=== PATIENT | female | born 1985 ===

== ENCOUNTER 2017-05-24 17:46 | Emergency (ER) | payer SELFPAY ==
[2017-05-24 17:50] VITALS: TEMP 98.2; O2SAT 98
[2017-05-24] MEDS ORDERED: Bacitracin 500 Units/gm Oint Foilpak UD TOP ONE (18:49)
[2017-05-24] MEDS ORDERED: Lidocaine 2% Inj (20ml) INFIL ONE (18:49)
[2017-05-24] MEDS ORDERED: Lidocaine 2% Inj (20ml) ONE (18:59)
[2017-05-24] MEDS ORDERED: Bacitracin 500 Units/gm Oint Foilpak UD ONE (18:59)
--- NOTE | 2017-05-24 19:47 | C.PDOC ---
History Of Present Illness 31 y/o female presents to ED for evaluation on cut to right thumb. Patient states she was cleaning salicylic acid blender and the blade cut right thumb. Patient denies change in sensation or any other complaints at this time. Patient is right hand dominant Time Seen by Provider: 05/24/17 18:22 Chief Complaint (Nursing): Abnormal Skin Integrity History Per: Patient History/Exam Limitations: no limitations Onset/Duration Of Symptoms: Hrs Current Symptoms Are (Timing): Still Present Location Of Injury: Right: Hand Past Medical History Reviewed: Historical Data, Nursing Documentation, Vital Signs Vital Signs: Last Vital Signs Temp 98.2 F 05/24/17 17:49 Pulse 70 05/24/17 20:07 Resp 16 05/24/17 20:07 BP 122/78 05/24/17 20:07 Pulse Ox 98 05/24/17 20:08 - Medical History PMH: No Chronic Diseases Surgical History: Appendectomy (2003) Family History: States: No Known Family Hx - Social History Hx Alcohol Use: No Hx Substance Use: No - Immunization History Hx Tetanus Toxoid Vaccination: No Hx Influenza Vaccination: No Hx Pneumococcal Vaccination: No Review Of Systems Except As Marked, All Systems Reviewed And Found Negative. Constitutional: Negative for: Fever, Chills Musculoskeletal: Positive for: Hand Pain Skin: Negative for: Rash Neurological: Negative for: Weakness, Numbness Physical Exam - Physical Exam Appears: Non-toxic, No Acute Distress Skin: Warm, Dry, No Rash Head: Atraumatic, Normacephalic Eye(s): bilateral: Normal Inspection, EOMI Nose: Normal Oral Mucosa: Moist Chest: Symmetrical Respiratory: No Accessory Muscle Use Extremity: Normal ROM, Capillary Refill (<2 sec), Other (2cm v shape to the palmar aspect of distal phalynx) Extremity: Bilateral: Normal ROM Pulses: Left Radial: Normal, Right Radial: Normal Neurological/Psych: Oriented x3, Normal Motor, Normal Sensation ED Course And Treatment O2 Sat by Pulse Oximetry: 98 (RA) Pulse Ox Interpretation: Normal Progress Note: Offered XR, pt refuses. Discussed would care and wound check in 2 days. Laceration - Laceration Repair Right thumb Wound Length (In cm): 2 Description Of Wound: Linear Wound Cleansed With: Betadine, Sterile Saline Anesthesia: Lidocaine 2% Wound Examination: Irrigated With Saline, No FB With Wound Exploration, No Tendon Injury With Wound Exploration Wound Closure: Suture (4) Suture Technique And Material Used: Nylon (5-O) Wound Complexity: Simple Disposition - Disposition Disposition: HOME/ ROUTINE Disposition Time: 19:48 Condition: STABLE Additional Instructions: Wound check in 2 days. Suture removal in 7-10 days. Watch for signs of infection including redness, swelling or discharge. Instructions: Finger Laceration (ED) Forms: [facility] [employer] (Mauritian) - Clinical Impression Clinical Impression: Finger laceration - PA / INTERVENTIONAL TECH / Resident Statement MD/DO has reviewed & agrees with the documentation as recorded. - Scribe Statement The provider has reviewed the documentation as recorded by the Dustyibmadeline Clemente All medical record entries made by the Dustyibmadeline were at my direction and personally dictated by me. I have reviewed the chart and agree that the record accurately reflects my personal performance of the history, physical exam, medical decision making, and the department course for this patient. I have also personally directed, reviewed, and agree with the discharge instructions and disposition.
[2017-05-24 20:07] VITALS: BP 122/78; PULSE 70; RESP 16
== END 2017-05-24 20:07 | disposition home or self-care (01) ==
LOC: C.ER 17:46
DX: S61.011A Laceration without foreign body of right thumb without damage to nail, initial encounter (principal); W29.0XXA Contact with powered kitchen appliance, initial encounter; Y93.E9 Activity, other interior property and clothing maintenance; Y92.89 Other specified places as the place of occurrence of the external cause; Z23 Encounter for immunization